=== PATIENT | male | born 1970 | race Caucasian/White ===

== ENCOUNTER 2016-09-08 15:34 | Emergency (ER) | payer OTHER ==
[2016-09-08] MEDS ORDERED: DIPH,PERTUS(ACELL)TETVAC-LF 0.5 ML VIAL IM ONE (15:42)
[2016-09-08] MEDS ORDERED: KETOROLAC 30 MG/ML 1 ML VIAL IVP STA (15:43)
[2016-09-08 15:45] VITALS: TEMP 97.5
--- NOTE | 2016-09-08 16:12 | XR ---
EXAMINATION TYPE: XR chest 1V portable DATE OF EXAM: 09/08/2016 COMPARISON: NONE HISTORY: Back pain TECHNIQUE: Single frontal view of the chest is obtained. FINDINGS: Heart and mediastinum are normal. Lungs are clear. Diaphragm is normal. Bony thorax appear s intact. IMPRESSION: Normal chest
--- NOTE | 2016-09-08 16:13 | XR ---
EXAMINATION TYPE: XR pelvis AP view DATE OF EXAM: 09/08/2016 COMPARISON: NONE HISTORY: Back pain TECHNIQUE: Single view FINDINGS: Pelvic ring is intact. Proximal femurs and hip joints are intact. Sacroiliac joints appear normal. IMPRESSION: Normal pelvis
--- NOTE | 2016-09-08 16:15 | XR ---
EXAMINATION TYPE: XR lumbar spine 2 or 3V DATE OF EXAM: 09/08/2016 COMPARISON: NONE HISTORY: Back pain TECHNIQUE: 3 views FINDINGS: There is 20% anterior wedging of L3 vertebral body. This appears to be an acute compression fracture. There is 10% depression of the anterior superior endplate of L1. Posterior elements are in tact. Sacroiliac joints are normal. Disc spaces are fairly normal. IMPRESSION: Acute compression fracture of L3. There is 10% minimal acute compression fracture of L1.
--- NOTE | 2016-09-08 17:17 | CT ---
EXAMINATION TYPE: CT lumbar spine wo con DATE OF EXAM: 09/08/2016 5:03 PM COMPARISON: NONE HISTORY: Patient complains of lower back pain with radiation to the left leg post fall. CT DLP: 702.4 mGycm Automated exposure control for dose reduction was used. Unenhanced CT of the lumbar spine was performed. Bone and soft tissue window settings are submitted as well as coronal and sagittal reconstructions. There is 20% compression deformity of L3 vertebral body. There is superior endplate fragment extendin g into the spinal canal with resultant severe spinal stenosis. There is anterior spurring of the supe rior endplate of L4. There is 10% depression of the superior endplate of L1 vertebra without evidence of expansion. Sacroi liac joints appear intact. The facet joints are intact. IMPRESSION: There is a burst fracture of L3 vertebral body with 1 cm fragment extending into the spinal canal and severe spinal stenosis. Mild compression fracture of L1 vertebral body.
[2016-09-08 17:19] VITALS: RESP 17
[2016-09-08 17:20] LABS: Basophils % (A) 0 %; CH 29.1; CHCM 34.6; Eosinophils # (A) 0.2 k/uL (0-0.7); Eosinophils % (A) 1 %; HDW 2.75; HGB 14.5 gm/dL (13.0-17.5); Luc # (Auto) 0.05; Luc % (Auto) 0; Lymphocytes # (A) 1.1 k/uL (1.0-4.8); Lymphocytes % (A) 8 %; MCHC 34.4 g/dL (31.0-37.0); MCV 84.4 fL (80.0-100.0); Mean Platelet Volume 6.9; Monocytes # (A) 0.5 k/uL (0-1.0); Monocytes % (A) 3 %; Neutrophils # (A) 12.6 k/uL (1.3-7.7); Neutrophils % (A) 87 %; RBC 4.98 m/uL (4.30-5.90); RDW 14.1 % (11.5-15.5); WBC 14.5 k/uL (3.8-10.6); WBC (Perox) 14.35
[2016-09-08] MEDS ORDERED: DEXAMETHASONE SOD PHOSPHATE 10 MG/ML 1 ML VIAL IV STA (17:25)
[2016-09-08 17:34] LABS: INR 1.1 (<1.2); Prothrombin Time 11.1 sec (9.0-12.0)
[2016-09-08 17:35] LABS: ALT 44 U/L (21-72); AST 33 U/L (17-59); Alkaline Phosphatase 80 U/L (38-126); Anion Gap 7 mmol/L; Blood Urea Nitrogen 19 mg/dL (9-20); Calcium 8.7 mg/dL (8.4-10.2); Carbon Dioxide 25 mmol/L (22-30); Chloride 108 mmol/L (98-107); Glucose 144 mg/dL (74-99); Non-African American GFR(MDRD) >60 (>60 ml/min/1.73 sqM); Potassium 3.9 mmol/L (3.5-5.1); Sodium 140 mmol/L (137-145); Total Bilirubin 0.5 mg/dL (0.2-1.3); Total Protein 6.1 g/dL (6.3-8.2)
[2016-09-08 17:39] LABS: Partial Thromboplastin Time 20.9 sec (22.0-30.0)
--- NOTE | 2016-09-08 17:53 | ED ---
General Adult HPI - General Chief complaint: Fall Stated complaint: fall from ladder apx 8 ft, back injury Time Seen by Provider: 09/08/16 15:35 Source: patient, EMS, RN notes reviewed Mode of arrival: EMS - History of Present Illness Initial comments: 46-year-old male presenting status post fall. Patient was climbing a ladder onto his roof fell approximately 8 feet landing in the seated position. He is complaining of low back pain. Patient was not ambulatory at the scene. He has not walked since the accident. Denies neck pain, denies chest pain, denies abdominal pain. Patient is experiencing shooting pain in his left leg with some numbness and tingling. There is no head trauma, no LOC, patient not on any medications currently. Complaining of isolated low back pain and left lower extremity pain. - Related Data Home Medications Medication Instructions Recorded Confirmed Albuterol Inhaler [Ventolin Hfa 1 puff INHALATION RT-Q6H PRN 09/08/16 09/08/16 Inhaler] Allergies Allergy/AdvReac Type Severity Reaction Status Date / Time honey AdvReac SHAKING Verified 09/08/16 16:17 Review of Systems ROS Statement: Those systems with pertinent positive or pertinent negative responses have been documented in the HPI. ROS Other: All systems not noted in ROS Statement are negative. Past Medical History Past Medical History: Asthma History of Any Multi-Drug Resistant Organisms: None Reported Past Surgical History: Hernia Repair, Orthopedic Surgery Past Psychological History: No Psychological Hx Reported Smoking Status: Former smoker Past Alcohol Use History: None Reported Past Drug Use History: None Reported General Exam Limitations: no limitations General appearance: alert, in distress Head exam: Present: atraumatic, normocephalic Eye exam: Present: normal appearance, PERRL ENT exam: Present: normal exam, mucous membranes moist Neck exam: Present: normal inspection, full ROM. Absent: tenderness Respiratory exam: Present: normal lung sounds bilaterally, respiratory distress Cardiovascular Exam: Present: regular rate, normal rhythm GI/Abdominal exam: Present: soft. Absent: distended, tenderness, guarding, rebound Extremities exam: Present: tenderness, other (Patient is able to move both lower extremities, he does have abrasion to the left lateral nieto which is superficial. Distal pulses are intact.) Back exam: Present: tenderness (Midline tenderness in the lumbar region.) Neurological exam: Present: alert, oriented X3, CN II-XII intact, motor sensory deficit (Patient is able to move both lower extremities equally, somewhat limited secondary to pain, he also describes shooting pain and numbness into his left leg.) Course Vital Signs 09/08/16 09/08/16 15:38 17:18 Temperature 97.5 F L Pulse Rate 74 84 Respiratory 20 17 Rate Blood Pressure 133/82 111/58 O2 Sat by Pulse 97 84 L Oximetry - Reevaluation(s) Reevaluation #1: 09/08/16 17:50 Patient's pain is improved with Toradol, morphine, and fentanyl. He is comfortable while laying supine. Shooting pain and numbness and tingling is currently resolved. Medical Decision Making - Medical Decision Making 46-year-old male presenting status post fall, chief complaint of low back pain. Initial x-ray shows a compression fracture L3, given the neurological symptoms CT is obtained which shows burst fracture L3 with a 1 cm intrusion of the spinal canal with severe spinal stenosis. This does match the patient's left lower extremity neurological complaints. He is given Decadron in the emergency department. There is no MRI available at this time, no neurosurgery or spinal surgery on-call at this institution. Patient will be transferred for further evaluation and care. Laboratory studies are pending at the time of this dictation. X-ray of the pelvis is intact, no fracture dislocation, chest x-ray shows no acute process Diagnosis: Burst fracture L3, with concern for cord compression. - Lab Data Result diagrams: 09/08/16 17:10 09/08/16 17:10 Lab Results 09/08/16 09/08/16 Range/Units 17:10 17:10 WBC 14.5 H (3.8-10.6) k/uL RBC 4.98 (4.30-5.90) m/uL Hgb 14.5 (13.0-17.5) gm/dL Hct 42.0 (39.0-53.0) % MCV 84.4 (80.0-100.0) fL MCH 29.0 (25.0-35.0) pg MCHC 34.4 (31.0-37.0) g/dL RDW 14.1 (11.5-15.5) % Plt Count 217 (150-450) k/uL Neutrophils % 87 % Lymphocytes % 8 % Monocytes % 3 % Eosinophils % 1 % Basophils % 0 % Neutrophils # 12.6 H (1.3-7.7) k/uL Lymphocytes # 1.1 (1.0-4.8) k/uL Monocytes # 0.5 (0-1.0) k/uL Eosinophils # 0.2 (0-0.7) k/uL Basophils # 0.0 (0-0.2) k/uL Sodium 140 (137-145) mmol/L Potassium 3.9 (3.5-5.1) mmol/L Chloride 108 H (98-107) mmol/L Carbon Dioxide 25 (22-30) mmol/L Anion Gap 7 mmol/L BUN 19 (9-20) mg/dL Creatinine 0.90 (0.66-1.25) mg/dL Est GFR (MDRD) Af Amer >60 (>60 ml/min/1.73 sqM) Est GFR (MDRD) Non-Af >60 (>60 ml/min/1.73 sqM) Glucose 144 H (74-99) mg/dL Calcium 8.7 (8.4-10.2) mg/dL Total Bilirubin 0.5 (0.2-1.3) mg/dL AST 33 (17-59) U/L ALT 44 (21-72) U/L Alkaline Phosphatase 80 (38-126) U/L Total Protein 6.1 L (6.3-8.2) g/dL Albumin 3.7 (3.5-5.0) g/dL Critical Care Time Critical Care Time: Yes Total Critical Care Time: 35 Disposition Clinical Impression: Fall, Lumbar burst fracture, Spinal cord compression Disposition: OTHER INSTITUTION NOT DEFINED Condition: Serious Referrals: None,Stated [Primary Care Provider] - 1-2 days Time of Disposition: 17:53 - Out of Hospital Transfer - Req. Specs Out of Hospital Transfer - Requested Specifics: Surgical ICU (Patient will be transferred to [facility] for neurosurgical evaluation.)
[2016-09-08 18:23] VITALS: BP 140/79; PULSE 90
[2016-09-08 18:23] LABS: Appearance,Urine Clear (Clear); Bilirubin,Urine Negative (Negative); Glucose,Urine (UA) Negative (Negative); Ketones,Urine Negative (Negative); Leukocyte Esterase,Urine Negative (Negative); Mucus,Urine Rare /hpf; Nitrite,Urine Negative (Negative); PH, Urine 5.5 (5.0-8.0); Particle Count 1771; Protein,Urine Negative (Negative); RBC,Urine 1 /hpf (0-5); Specific Gravity,Urine 1.012 (1.001-1.035); UA Billing (MACRO vs. MICRO) MICRO; Urobilinogen,Urine <2.0 mg/dL (<2.0); WBC,Urine 1 /hpf (0-5)
[2016-09-08] MEDS ORDERED: MORPHINE SULFATE 4 MG/ML SYRINGE IVP STA (18:34)
== END 2016-09-08 18:42 | disposition short-term general hospital (02) ==
LOC: EC 15:34
DX: S32.031A Stable burst fracture of third lumbar vertebra, initial encounter for closed fracture (principal); Z23 Encounter for immunization; Z87.891 Personal history of nicotine dependence; Z91.018 Allergy to other foods; W11.XXXA Fall on and from ladder, initial encounter; Y93.39 Activity, other involving climbing, rappelling and jumping off
CPT/HCPCS: 99291; 96374; 96375 ×2; 90471; 36415; 86900; 86901; 80053; 85025; 85610; 85730; 86850; 81001; 80306; 71010; 72100; 72170; 72131; 90715; J2270; J1100; J1885

== ENCOUNTER 2017-07-01 22:34 | Emergency (ER) | payer OTHER ==
[2017-07-01 22:41] VITALS: TEMP 98.5
[2017-07-01] MEDS ORDERED: IPRATROPIUM-ALBUTEROL 3 ML NEB INHALATION STA (22:58)
[2017-07-01] MEDS ORDERED: SODIUM CHLORIDE 0.9% 1,000 ML IV ONE (22:58)
[2017-07-01] MEDS ORDERED: methylPREDNISolone SOD SUCCI 125 MG/2 ML VIAL IV STA (22:58)
[2017-07-01 23:25] VITALS: BP 133/69; PULSE 100; RESP 18
[2017-07-01 23:26] LABS: Basophils % (A) 0 %; Eosinophils % (A) 1 %; HCT 42.4 % (39.0-53.0); HGB 14.2 gm/dL (13.0-17.5); Lymphocytes % (A) 14 %; MCH 26.9 pg (25.0-35.0); MCHC 33.4 g/dL (31.0-37.0); MCV 80.6 fL (80.0-100.0); Mean Platelet Volume 6.5; Monocytes # (A) 0.3 k/uL (0-1.0); Monocytes % (A) 4 %; Neutrophils # (A) 5.4 k/uL (1.3-7.7); Neutrophils % (A) 80 %; Platelet Count 322 k/uL (150-450); RBC 5.26 m/uL (4.30-5.90); WBC 6.7 k/uL (3.8-10.6)
--- NOTE | 2017-07-01 23:32 | XR ---
EXAMINATION TYPE: XR chest 2V DATE OF EXAM: 07/01/2017 COMPARISON: 09/08/2016 HISTORY: Asthma TECHNIQUE: Frontal and lateral views of the chest are obtained. FINDINGS: Heart and mediastinum are normal. Lungs are clear. Diaphragm is normal. There are chest le ads. Bony thorax is intact. IMPRESSION: Normal chest. No change.
[2017-07-01 23:41] LABS: ALT 47 U/L (21-72); AST 32 U/L (17-59); Albumin 3.5 g/dL (3.5-5.0); Alkaline Phosphatase 55 U/L (38-126); Anion Gap 11 mmol/L; Blood Urea Nitrogen 26 mg/dL (9-20); Calcium 8.8 mg/dL (8.4-10.2); Carbon Dioxide 22 mmol/L (22-30); Chloride 107 mmol/L (98-107); Glucose 133 mg/dL (74-99); Potassium 4.2 mmol/L (3.5-5.1); Sodium 140 mmol/L (137-145); Total Bilirubin 0.4 mg/dL (0.2-1.3); Total Protein 5.4 g/dL (6.3-8.2)
--- NOTE | 2017-07-02 00:03 | ED ---
SOB HPI - General Chief Complaint: Shortness of Breath Stated Complaint: sob- had asthma atack Time Seen by Provider: 07/01/17 22:47 Source: patient Mode of arrival: ambulatory Limitations: no limitations - History of Present Illness Initial Comments: This is a 47-year-old male with a history of asthma who presents emergency department for worsening shortness of breath and congestion. 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 He states that throughout the week he's been having shortness of breath every time he went to work. He states that his work is trying to get him into a different area however tonight he developed worsening symptoms and his inhaler was not working suicide come emergency department. He denies any fevers or chills. No cough. States he just feels wheezy and congested. No chest pain however he does state when he takes a deep breath he does have some discomfort in his anterior chest. No lower Chevys swelling. No history DVT or PE. No history of travel or trauma recently. No other acute complaints. - Related Data Home Medications Medication Instructions Recorded Confirmed Albuterol Inhaler [Ventolin Hfa 1 puff INHALATION RT-Q6H PRN 09/08/16 07/01/17 Inhaler] Fluticasone/Salmeterol [Advair 1 puff INHALATION RT-BID 07/01/17 07/01/17 250-50 Diskus] methylPREDNISolone Dose Pack See Taper PO DAILY 07/01/17 07/01/17 [Medrol Dose Pack] Previous Rx's Medication Instructions Recorded predniSONE 50 mg PO DAILY #5 tablet 07/02/17 Allergies Allergy/AdvReac Type Severity Reaction Status Date / Time honey AdvReac SHAKING Verified 07/01/17 22:54 Review of Systems ROS Statement: Those systems with pertinent positive or pertinent negative responses have been documented in the HPI. ROS Other: All systems not noted in ROS Statement are negative. Past Medical History Past Medical History: Asthma History of Any Multi-Drug Resistant Organisms: None Reported Past Surgical History: Hernia Repair, Orthopedic Surgery Past Psychological History: No Psychological Hx Reported Smoking Status: Never smoker Past Alcohol Use History: None Reported Past Drug Use History: None Reported General Exam - General Exam Comments Initial Comments: Constitutional: Awake alert Appears comfortable Head: Normocephalic atraumatic Eyes: no conjunctival injection No scleral icterus EOMI Neck: No JVD Supple Heart: Regular rate rhythm normal S1-S2 no murmurs Lungs: Clear to auscultation bilaterally No wheezing No rales Abdomen: Soft nondistended nontender Extremities: Non edematous DP pulses intact Radial pulses intact Neuro: A&Ox3 No focal neurologic deficits Psych: Appropriate mood and affect . Limitations: no limitations Course Vital Signs 07/01/17 07/01/17 07/01/17 22:38 23:12 23:21 Temperature 98.5 F Pulse Rate 111 H 96 100 Respiratory 24 18 Rate Blood Pressure 131/79 133/69 O2 Sat by Pulse 96 99 Oximetry - Reevaluation(s) Reevaluation #1: 07/02/17 00:06 EKG showing normal sinus rhythm with a rate of 98. No abnormal ST segment changes or T-wave inversions. QTC is 441. Other intervals normal. No ectopy. Medical Decision Making - Medical Decision Making Is a 47-year-old male who presents emergency department for shortness of breath. He was given a DuoNeb treatment with much improvement in his symptoms. Chest x-ray was negative. D-dimer negative. Troponin negative. EKG is nonischemic. The patient is going go home. He has an inhaler that he can use as needed. I'm going to provide him with steroids for the next 5 days. He was encouraged to try to find a different area to work at his place of employment. He is to follow-up with his primary doctor. - Lab Data Result diagrams: 07/01/17 23:05 07/01/17 23:05 Lab Results 07/01/17 07/01/17 07/01/17 Range/Units 23:05 23:05 23:05 WBC 6.7 (3.8-10.6) k/uL RBC 5.26 (4.30-5.90) m/uL Hgb 14.2 (13.0-17.5) gm/dL Hct 42.4 (39.0-53.0) % MCV 80.6 (80.0-100.0) fL MCH 26.9 (25.0-35.0) pg MCHC 33.4 (31.0-37.0) g/dL RDW 13.0 (11.5-15.5) % Plt Count 322 (150-450) k/uL Neutrophils % 80 % Lymphocytes % 14 % Monocytes % 4 % Eosinophils % 1 % Basophils % 0 % Neutrophils # 5.4 (1.3-7.7) k/uL Lymphocytes # 1.0 (1.0-4.8) k/uL Monocytes # 0.3 (0-1.0) k/uL Eosinophils # 0.0 (0-0.7) k/uL Basophils # 0.0 (0-0.2) k/uL D-Dimer 0.29 (<0.60) mg/L FEU Sodium 140 (137-145) mmol/L Potassium 4.2 (3.5-5.1) mmol/L Chloride 107 (98-107) mmol/L Carbon Dioxide 22 (22-30) mmol/L Anion Gap 11 mmol/L BUN 26 H (9-20) mg/dL Creatinine 0.99 (0.66-1.25) mg/dL Est GFR (CKD-EPI)AfAm >90 (>60 ml/min/1.73 sqM) Est GFR (CKD-EPI)NonAf >90 (>60 ml/min/1.73 sqM) Glucose 133 H (74-99) mg/dL Calcium 8.8 (8.4-10.2) mg/dL Total Bilirubin 0.4 (0.2-1.3) mg/dL AST 32 (17-59) U/L ALT 47 (21-72) U/L Alkaline Phosphatase 55 (38-126) U/L Troponin I (0.000-0.034) ng/mL Total Protein 5.4 L (6.3-8.2) g/dL Albumin 3.5 (3.5-5.0) g/dL / Range/Units 23:05 WBC (3.8-10.6) k/uL RBC (4.30-5.90) m/uL Hgb (13.0-17.5) gm/dL Hct (39.0-53.0) % MCV (80.0-100.0) fL MCH (25.0-35.0) pg MCHC (31.0-37.0) g/dL RDW (11.5-15.5) % Plt Count (150-450) k/uL Neutrophils % % Lymphocytes % % Monocytes % % Eosinophils % % Basophils % % Neutrophils # (1.3-7.7) k/uL Lymphocytes # (1.0-4.8) k/uL Monocytes # (0-1.0) k/uL Eosinophils # (0-0.7) k/uL Basophils # (0-0.2) k/uL D-Dimer (<0.60) mg/L FEU Sodium (137-145) mmol/L Potassium (3.5-5.1) mmol/L Chloride (98-107) mmol/L Carbon Dioxide (22-30) mmol/L Anion Gap mmol/L BUN (9-20) mg/dL Creatinine (0.66-1.25) mg/dL Est GFR (CKD-EPI)AfAm (>60 ml/min/1.73 sqM) Est GFR (CKD-EPI)NonAf (>60 ml/min/1.73 sqM) Glucose (74-99) mg/dL Calcium (8.4-10.2) mg/dL Total Bilirubin (0.2-1.3) mg/dL AST (17-59) U/L ALT (21-72) U/L Alkaline Phosphatase (38-126) U/L Troponin I <0.012 (0.000-0.034) ng/mL Total Protein (6.3-8.2) g/dL Albumin (3.5-5.0) g/dL Disposition Clinical Impression: Asthma exacerbation Disposition: HOME SELF-CARE Condition: Stable Instructions: Asthma (ED) Prescriptions: predniSONE 50 mg PO DAILY #5 tablet Is patient prescribed a controlled substance at d/c from ED?: No Referrals: Chema Snow MD [Primary Care Provider] - 1-2 days
== END 2017-07-02 00:12 | disposition home or self-care (01) ==
LOC: EC 22:34
DX: J45.901 Unspecified asthma with (acute) exacerbation (principal); Z91.030 Bee allergy status; Z79.51 Long term (current) use of inhaled steroids; Z79.52 Long term (current) use of systemic steroids
CPT/HCPCS: 99285; 96374; 96361; 36415; 94640; 93005; 85379; 80053; 84484; 85025; 71046; J2930

== ENCOUNTER 2018-02-10 20:49 | Emergency (ER) | payer OTHER ==
[2018-02-10 20:55] VITALS: TEMP 98.2
[2018-02-10] MEDS ORDERED: ASPIRIN 81 MG PO STA (21:12)
[2018-02-10] MEDS ORDERED: SODIUM CHLORIDE 0.9% 1,000 ML IV STA (21:12)
--- NOTE | 2018-02-10 21:13 | ED ---
Chest Pain HPI - General Chief Complaint: Chest Pain Stated Complaint: Chest pain Time Seen by Provider: 02/10/18 21:10 Source: patient Mode of arrival: ambulatory Limitations: no limitations - History of Present Illness Initial Comments: Александр is a previously healthy 47 yo male who presents to the ED for evaluation of burning retrosternal chest pain and shortness of breath since waking this morning. patient states that he suffers from asthma, which is usually worse in the winter so he is used to the shortness of breath and this is not at all out of the ordinary for him. However, upon waking this morning he noticed some burning pain in his retrosternal area. Pain is mild, not associated with lightheadedness or diaphoresis. Patient states the pain seemed to improve when he was outside chopping wood, but seemed to get worse this evening while he was sitting on his couch. Patient's insisted he come to the emergency department for evaluation. She states that he was recently prescribed a nebulizer help with his asthma symptoms and is concerned that using the nebulizer may be contributing to his discomfort. Patient does state that he broke his back year and a half ago, he has been increasing his stretching and range of motion exercises and was concerned this may be contributing to his discomfort. - Related Data Home Medications Medication Instructions Recorded Confirmed Albuterol Inhaler [Ventolin Hfa 1 puff INHALATION RT-Q6H PRN 09/08/16 07/01/17 Inhaler] Acetaminophen [Tylenol Extra 500 mg PO Q6H PRN 02/10/18 02/10/18 Strength] Allergies Allergy/AdvReac Type Severity Reaction Status Date / Time honey AdvReac SHAKING Verified 02/10/18 21:55 Review of Systems ROS Statement: Those systems with pertinent positive or pertinent negative responses have been documented in the HPI. ROS Other: All systems not noted in ROS Statement are negative. EKG Findings - EKG Comments: EKG Findings:: EKG obtained at 9:03 PM, rate is 77, rhythm is sinus, there is normal axis, normal intervals, no acute ST elevations or depressions no evidence of acute ischemia or infarction. Past Medical History Past Medical History: Asthma History of Any Multi-Drug Resistant Organisms: None Reported Past Surgical History: Hernia Repair, Orthopedic Surgery Past Psychological History: No Psychological Hx Reported Smoking Status: Never smoker Past Alcohol Use History: None Reported Past Drug Use History: None Reported General Exam - General Exam Comments Initial Comments: Physical Exam GENERAL: Patient is well-developed and well-nourished. Patient is nontoxic and well- hydrated and is in no distress. HENT: Normocephalic, Atraumatic. Oral mucosa is normal without lesions, no posterior pharyngeal erythema or exudate EYES: PERRL, EOMI PULMONARY: Unlabored respirations. No audible rales rhonchi or wheezing was noted. CARDIOVASCULAR: There is a regular rate and rhythm without any murmurs gallops or rubs. Pulses are present and equal in bilateral upper extremities ABDOMEN: Soft and nontender with normal bowel sounds. No pulsatile mass SKIN: Skin is clear with no lesions or rashes and otherwise unremarkable. : Deferred NEUROLOGIC: Patient is alert and oriented x3. Moving all extremities spontaneously MUSCULOSKELETAL: Normal extremities with adequate strength and full range of motion. No lower extremity swelling or edema. No calf tenderness. No reproducible tenderness in the chest PSYCHIATRIC: Normal psychiatric evaluation. Limitations: no limitations Limitations: no limitations Course Vital Signs 02/10/18 02/10/18 02/10/18 20:52 21:20 21:30 Temperature 98.2 F Pulse Rate 76 75 Respiratory 20 24 16 Rate Blood Pressure 150/81 149/92 O2 Sat by Pulse 99 96 Oximetry 02/10/18 02/10/18 02/10/18 21:50 22:00 22:10 Temperature Pulse Rate 79 80 78 Respiratory 12 14 11 L Rate Blood Pressure 146/95 O2 Sat by Pulse 98 96 97 Oximetry 02/10/18 02/10/18 22:20 22:30 Temperature Pulse Rate 73 75 Respiratory 22 17 Rate Blood Pressure 146/95 146/95 O2 Sat by Pulse 98 97 Oximetry Chest Pain [facility] Patient was seen and evaluated, history was obtained from the patient and Heart score 1 for age Labs and imaging with no acute findings Considering the duration of the discomfort I feel a single troponin is adequate to rule out acute coronary syndrome at this time Patient resting comfortably in no acute distress, results discussed with patient and who expresses relief, are eager for discharge home. All questions pertaining to care were answered to the best of my ability, return parameters were discussed and the patient was discharged home in stable condition. Disposition Clinical Impression: Atypical chest pain Disposition: HOME SELF-CARE Condition: Good Instructions: Chest Pain (ED) Is patient prescribed a controlled substance at d/c from ED?: No Referrals: Chema Snow MD [Primary Care Provider] - 1-2 days
[2018-02-10 21:39] LABS: Basophils # (A) 0.1 k/uL (0-0.2); Basophils % (A) 1 %; Eosinophils # (A) 0.4 k/uL (0-0.7); Eosinophils % (A) 5 %; HCT 42.5 % (39.0-53.0); HGB 14.1 gm/dL (13.0-17.5); Lymphocytes # (A) 2.9 k/uL (1.0-4.8); Lymphocytes % (A) 41 %; MCHC 33.2 g/dL (31.0-37.0); MCV 84.2 fL (80.0-100.0); Mean Platelet Volume 6.5; Monocytes # (A) 0.4 k/uL (0-1.0); Monocytes % (A) 6 %; Neutrophils # (A) 3.3 k/uL (1.3-7.7); Neutrophils % (A) 46 %; Platelet Count 213 k/uL (150-450); RBC 5.05 m/uL (4.30-5.90); RDW 13.3 % (11.5-15.5); WBC 7.2 k/uL (3.8-10.6)
--- NOTE | 2018-02-10 21:43 | XR ---
EXAMINATION TYPE: XR chest 2V DATE OF EXAM: 02/10/2018 COMPARISON: 07/01/17 HISTORY: Chest pain TECHNIQUE: Frontal and lateral views of the chest are obtained. FINDINGS: There is no focal air space opacity. No evidence for pneumothorax. No pleural effusion. The cardiac silhouette size is within normal limits. The osseous structures are grossly intact. IMPRESSION: 1. No acute cardiopulmonary process.
[2018-02-10 21:51] LABS: ALT 35 U/L (21-72); AST 22 U/L (17-59); Albumin 3.6 g/dL (3.5-5.0); Alkaline Phosphatase 78 U/L (38-126); Anion Gap 6 mmol/L; Blood Urea Nitrogen 21 mg/dL (9-20); Calcium 8.6 mg/dL (8.4-10.2); Carbon Dioxide 24 mmol/L (22-30); Chloride 110 mmol/L (98-107); Glucose 102 mg/dL (74-99); Potassium 4.2 mmol/L (3.5-5.1); Sodium 140 mmol/L (137-145); Total Bilirubin 0.2 mg/dL (0.2-1.3)
[2018-02-10 21:52] LABS: D-Dimer 0.24 mg/L FEU (<0.60); INR 0.9 (<1.2)
[2018-02-10 22:00] LABS: Creatine Kinase 109 U/L (55-170)
[2018-02-10 22:13] LABS: Creatine Kinase MB 0.8 ng/mL (0.0-2.4); Troponin I <0.012 ng/mL (0.000-0.034)
[2018-02-10 22:38] VITALS: BP 146/95; PULSE 75; RESP 17
== END 2018-02-10 22:48 | disposition home or self-care (01) ==
LOC: EC 20:49
DX: R07.89 Other chest pain (principal); R06.02 Shortness of breath; J45.909 Unspecified asthma, uncomplicated; Z91.018 Allergy to other foods
CPT/HCPCS: 36415; 71046; 80053; 82550; 82553; 83735; 83880; 84484; 85025; 85379; 85610; 85730; 93005; 96360; 99285